=== PATIENT | male | born 1975 | race Caucasian/White ===

== ENCOUNTER 2017-09-27 19:31 | Emergency (ER) | payer SELFPAY ==
--- NOTE | 2017-09-27 20:02 | ER Document Report ---
ED Medical Screen (RME) - General Chief Complaint: Groin Pain Stated Complaint: GROIN PAIN Time Seen by Provider: 09/27/17 20:00 Mode of Arrival: Ambulatory Information source: Patient TRAVEL OUTSIDE OF THE [place] IN LAST 30 DAYS: No - HPI Patient complains to provider of: scrotal pain Onset: Other - pt. with 2 wk h/o scrotal pain (intermittent). Denies h/o trauma - Related Data Allergies/Adverse Reactions: morphine [Morphine] Allergy (Severe, Verified 11/03/10 15:20) Hives Past Medical History - Social History Chew tobacco use (# tins/day): No Frequency of alcohol use: None Drug Abuse: None Renal/ Medical History: Denies: Hx Peritoneal Dialysis Physical Exam - Vital signs Vitals: Temp Pulse Resp BP Pulse Ox 98.7 F 64 14 116/66 97 09/27/17 19:47 09/27/17 19:47 09/27/17 19:47 09/27/17 19:47 09/27/17 19:47 Course - Vital Signs Vital signs: Temp Pulse Resp BP Pulse Ox 98.7 F 64 14 116/66 97 09/27/17 19:47 09/27/17 19:47 09/27/17 19:47 09/27/17 19:47 09/27/17 19:47
[2017-09-27 20:43] LABS: APPEARANCE,URINE CLEAR; BILIRUBIN,URINE NEGATIVE (NEGATIVE); COLOR,URINE YELLOW; GLUCOSE, URINE NEGATIVE (NEGATIVE); KETONES,URINE NEGATIVE (NEGATIVE); LEUKOCYTE ESTERASE,URINE TRACE (NEGATIVE); NITRITE,URINE NEGATIVE (NEGATIVE); PROTEIN,URINE NEGATIVE (NEGATIVE); URINE SPECIFIC GRAVITY 1.019
--- NOTE | 2017-09-27 21:36 | RADIOLOGY REPORT (SQ) ---
EXAM DESCRIPTION: U/S SCROTUM W/DOPPLER COMPLETED DATE/TIME: 09/27/2017 9:27 pm REASON FOR STUDY: scrotal pain COMPARISON: None. TECHNIQUE: Static and realtime sandhu scale imaging of the scrotum and testes. Selected color Doppler and spectral images recorded to document blood flow. LIMITATIONS: None. FINDINGS: RIGHT: TESTICLE: Normal size. Normal echotexture. Normal blood flow. No mass. EPIDIDYMIS: Normal. HYDROCELE OR VARICOCELE: No. HERNIA OR EXTRA-TESTICULAR MASS: No. OTHER: No other significant finding. LEFT: TESTICLE: Normal size. Normal echotexture. Normal blood flow. No mass. EPIDIDYMIS: Normal. HYDROCELE OR VARICOCELE: No. HERNIA OR EXTRA-TESTICULAR MASS: No. OTHER: No other significant finding. IMPRESSION: NORMAL SCROTAL ULTRASOUND. NO EVIDENCE OF TESTICULAR MASS OR TORSION. TECHNICAL DOCUMENTATION: JOB ID: [id number] [employer]- All Rights Reserved
--- NOTE | 2017-09-27 22:34 | ER Document Report ---
ED General - General Chief Complaint: Groin Pain Stated Complaint: GROIN PAIN Time Seen by Provider: 09/27/17 20:00 Mode of Arrival: Ambulatory Notes: 41-year-old male presents with bilateral groin pain, equal, happened about 3 weeks ago then stopped. Came back a few days ago and is now worse. No scrotal swelling but "it feels like someone kicked me in the balls." This is been going on for several days and was not sudden onset. No vomiting hernias heavy lifting penile discharge or history of STDs. TRAVEL OUTSIDE OF THE [place] IN LAST 30 DAYS: No - Related Data Allergies/Adverse Reactions: morphine [Morphine] Allergy (Severe, Verified 11/03/10 15:20) Hives Past Medical History - General Information source: Patient - Social History Smoking Status: Current Every Day Smoker Chew tobacco use (# tins/day): No Smoking Education Provided: Yes - The patient ED visit today was directly related to their abuse of tobacco. Frequency of alcohol use: None Drug Abuse: None Family History: None Patient has suicidal ideation: No Patient has homicidal ideation: No Renal/ Medical History: Denies: Hx Peritoneal Dialysis Review of Systems - Review of Systems Notes: REVIEW OF SYSTEMS GEN: Denies fever, chills, weight loss ENT: Denies sore throat, nasal discharge, ear pain EYES: Denies blurry vision, eye pain, discharge CV: Denies chest pain, palpitations, edema RESP: Denies cough, shortness of breath, wheezing GI: Denies abdominal pain, nausea, vomiting, diarrhea MSK: Denies joint pain/swelling, edema, SKIN: Denies rash, skin lesions LYMPH: Denies swollen glands/lymph nodes NEURO: Denies headache, focal weakness or numbness, dizziness PSYCH: Denies depression, suicidal or homicidal ideation PHYSICAL EXAMINATION General: No acute distress, well-nourished Head: Atraumatic, normocephalic ENT: Mouth normal, oropharynx moist, no exudates or tonsillar enlargement Eyes: Conjunctiva normal, pupils equal, lids normal Neck: No JVD, supple, no guarding CVS: Normal rate, regular rhythm, no murmurs Resp: No resp distress, equal and normal breath sounds bilaterally GI: Nondistended, soft, no tenderness to palpation, no rebound or guarding 2genitourinary: Bilateral cremasteric reflex intact, normal penis no discharge, minimal testicle tenderness bilaterally with no masses and a normal lie. No inguinal lymphadenopathy Ext: No deformities, no edema, normal range of motion in upper and lower ext Back: No CVA or midline TTP Skin: No rash, warm Lymphatic: No lymphadeopathy noted Neuro: Awake, alert. Face symmetric. GCS 15. Physical Exam - Vital signs Vitals: Temp Pulse Resp BP Pulse Ox 98.7 F 64 14 116/66 97 09/27/17 19:47 09/27/17 19:47 09/27/17 19:47 09/27/17 19:47 09/27/17 19:47 Course - Re-evaluation Re-evalutation: 09/27/17 22:32 Since with insidious onset of bilateral groin pain. Normal scrotal exam no lymphadenopathy no abdominal tenderness. No history of STDs and no signs on exam today. 09/27/17 22:32 Seen at triage. Urine shows trace leukocyte esterase, scrotal ultrasound, which I would have ordered as well, is negative. No evidence of ongoing hernias or abdominal emergency. No outward signs of sexually transmitted infection. Will refer to urology for further workup. Doubt kidney stones doubt intra-abdominal infection. I have discussed with the patient there likely diagnosis, aftercare plan, follow-up plans and my usual and customary return precautions. They verbalized understanding of this. - Vital Signs Vital signs: Temp Pulse Resp BP Pulse Ox 98.7 F 64 14 116/66 97 09/27/17 19:47 09/27/17 19:47 09/27/17 19:47 09/27/17 19:47 09/27/17 19:47 - Laboratory Laboratory results interpreted by me: 09/27/17 20:04 Urine Urobilinogen 2.0 H Ur Leukocyte Esterase TRACE H Discharge - Discharge Clinical Impression: Bilateral groin pain Condition: Good Disposition: HOME, SELF-CARE Instructions: Abdominal Pain ([facility]) Additional Instructions: You had a normal ultrasound of the scrotum today. We did not find evidence of sexually transmitted infection. Please follow-up with primary care or urology within a week if you are still hurting. Please return to the ER if her symptoms worsen. Prescriptions: Ibuprofen [Motrin 600 mg Tablet] 600 mg PO Q8HP PRN #90 tablet PRN Reason: Referrals: [facility] [Provider Group] - Follow up as needed POINT,MARIA ESTHER Horne MD [NO LOCAL MD] - Follow up as needed
[2017-09-27 22:46] VITALS: BP 117/64
== END 2017-09-27 22:46 | disposition home or self-care (01) ==
LOC: ER 19:31
DX: R10.30 Lower abdominal pain, unspecified (principal); F17.200 Nicotine dependence, unspecified, uncomplicated; Z88.5 Allergy status to narcotic agent
CPT/HCPCS: 76870; 81001; 93976; 99284